=== PATIENT | female | born 1985 | race American Indian/Alaskan Native ===

== ENCOUNTER 2018-09-22 06:40 | Emergency (ER) | payer BC ==
[2018-09-22 07:21] LABS: Alanine Aminotransferase 9 units/L (7-56); Albumin 4.7 g/dL (3.9-5); BUN/Creatinine Ratio 19; Blood Urea Nitrogen 13 mg/dL (7-17); Calcium 10.3 mg/dL (8.4-10.2); Hemolysis Index 2
[2018-09-22 07:22] LABS: Basophils # (Auto) 0.1 K/mm3 (0.0-0.1); Basophils % (Auto) 0.7 % (0.0-1.8); Eosinophils % (Auto) 0.1 % (0.0-4.3); Hematocrit 37.1 % (30.3-42.9); Hemoglobin 12.1 gm/dl (10.1-14.3); Lymphocytes # (Auto) 2.7 K/mm3 (1.2-5.4); Lymphocytes % (Auto) 21.4 % (13.4-35.0); Mean Corpuscular HGB Conc 33 % (30-34); Mean Corpuscular Volume 76 fl (79-97); Monocytes # (Auto) 0.8 K/mm3 (0.0-0.8); Monocytes % (Auto) 6.1 % (0.0-7.3); Platelet Count 619 K/mm3 (140-440); Red Blood Count 4.85 M/mm3 (3.65-5.03); Red Cell Distribution Width 16.9 % (13.2-15.2)
[2018-09-22] MEDS ORDERED: ZOFRAN IV ONE (08:07)
[2018-09-22] MEDS ORDERED: NACL 0.9% 1000 ML 1,000 ML IV ONE ×2 (08:07→08:09)
[2018-09-22] MEDS ORDERED: MORPHINE IV ONE (08:14)
--- NOTE | 2018-09-22 08:20 | Emergency Department Report ---
ED Abdominal Pain HPI - General Chief Complaint: Abdominal Pain Stated Complaint: VOMITING OUT OF MEDICATION Time Seen by Provider: 09/22/18 07:55 Source: patient Mode of arrival: Ambulatory Limitations: No Limitations - History of Present Illness Initial Comments: Ms. Archuleta is a 33-year-old female with type 2 diabetes presents with vomiting and nausea for the past several days. She also has been without long-acting insulin of which she takes 10-15 units each night. She also has not taken metformin for the past week. She stated that the metformin has caused upset stomach and nausea. Diagnosed with type 2 diabetes for 5 years ago. According to electronic medical record, hemoglobin A1c is 14. She is followed by a physician side medical clinic. Currently she has diffuse moderately severe abdominal cramping. She has nausea. She just doesn't feel well. She is an employee here at [employer]. MD Complaint: abdominal pain -: Gradual, days(s) (several) Location: diffuse Severity: moderate Severity scale (0 -10): 7 Quality: cramping Consistency: constant Improves With: nothing Worsens With: nothing - Related Data Previous Rx's Medication Instructions Recorded Last Taken Type Blood-Glucose Meter [Blood Glucose 1 each QACHS #1 kit 04/24/18 07/14/18 Rx Monitoring] Aspirin EC [Aspirin Enteric Coated 81 mg PO QDAY #30 tablet 07/18/18 Unknown Rx TAB] AtorvaSTATin [Lipitor] 40 mg PO QHS #30 tablet 07/18/18 Unknown Rx Blood Sugar Diagnostic [Blood 1 each QACHS #120 strip 07/18/18 Unknown Rx Glucose Test Strip] Dicyclomine [Bentyl] 20 mg PO QID PRN #20 capsule 07/18/18 Unknown Rx Insulin Glargine [Lantus VIAL] 10 units SUB-Q QHS #1 vial 07/18/18 Unknown Rx Lancets 1 each QACHS #100 each 07/18/18 Unknown Rx Lisinopril 20 mg PO DAILY 30 Days #30 tablet 07/18/18 Unknown Rx Metoclopramide [Reglan TAB] 10 mg PO QID PRN #20 tab 07/18/18 Unknown Rx Syringe and Needle,Insulin,1Ml 1 each QHS #100 disp.syrin 07/18/18 Unknown Rx [Advocate Syringes] amLODIPine [Norvasc] 10 mg PO QDAY #30 tablet 07/18/18 Unknown Rx metFORMIN [Glucophage] 1,000 mg PO BID #120 tablet 07/18/18 Unknown Rx Insulin Glargine [Lantus VIAL] 10 unit SUB-Q QHS #1 vial 09/22/18 Unknown Rx Metoclopramide [Reglan] 10 mg PO QID PRN #20 tab 09/22/18 Unknown Rx Allergies Allergy/AdvReac Type Severity Reaction Status Date / Time Penicillins Allergy Rash Verified 07/16/18 14:47 shellfish derived Allergy Rash Verified 07/16/18 14:47 ED Review of Systems ROS: Stated complaint: VOMITING OUT OF MEDICATION Other details as noted in HPI Comment: All other systems reviewed and negative Constitutional: malaise. denies: fever Gastrointestinal: abdominal pain, nausea, vomiting. denies: diarrhea ED Past Medical Hx - Past Medical History Previous Medical History?: Yes Hx Hypertension: Yes Hx Congestive Heart Failure: No Hx Diabetes: Yes Hx Asthma: No Hx COPD: No Hx HIV: No - Surgical History Past Surgical History?: No - Social History Smoking Status: Never Smoker - Medications Home Medications: Home Medications Medication Instructions Recorded Confirmed Last Taken Type Blood-Glucose Meter [Blood Glucose 1 each QACHS #1 kit 04/24/18 07/15/18 07/14/18 Rx Monitoring] Aspirin EC [Aspirin Enteric Coated 81 mg PO QDAY #30 tablet 07/18/18 Unknown Rx TAB] AtorvaSTATin [Lipitor] 40 mg PO QHS #30 tablet 07/18/18 Unknown Rx Blood Sugar Diagnostic [Blood 1 each QACHS #120 strip 07/18/18 Unknown Rx Glucose Test Strip] Dicyclomine [Bentyl] 20 mg PO QID PRN #20 capsule 07/18/18 Unknown Rx Insulin Glargine [Lantus VIAL] 10 units SUB-Q QHS #1 vial 07/18/18 Unknown Rx Lancets 1 each QACHS #100 each 07/18/18 Unknown Rx Lisinopril 20 mg PO DAILY 30 Days #30 tablet 07/18/18 Unknown Rx Metoclopramide [Reglan TAB] 10 mg PO QID PRN #20 tab 07/18/18 Unknown Rx Syringe and Needle,Insulin,1Ml 1 each QHS #100 disp.syrin 07/18/18 Unknown Rx [Advocate Syringes] amLODIPine [Norvasc] 10 mg PO QDAY #30 tablet 07/18/18 Unknown Rx metFORMIN [Glucophage] 1,000 mg PO BID #120 tablet 07/18/18 Unknown Rx Insulin Glargine [Lantus VIAL] 10 unit SUB-Q QHS #1 vial 09/22/18 Unknown Rx Metoclopramide [Reglan] 10 mg PO QID PRN #20 tab 09/22/18 Unknown Rx ED Physical Exam - General Limitations: No Limitations General appearance: alert, in no apparent distress - Head Head exam: Present: atraumatic, normocephalic - Eye Eye exam: Present: normal appearance - ENT ENT exam: Present: mucous membranes dry - Neck Neck exam: Present: normal inspection, full ROM. Absent: tenderness, meningismus - Respiratory Respiratory exam: Present: normal lung sounds bilaterally. Absent: respiratory distress, wheezes, rales, rhonchi - Cardiovascular Cardiovascular Exam: Present: normal rhythm, tachycardia, normal heart sounds. Absent: systolic murmur, diastolic murmur, rubs, gallop - GI/Abdominal GI/Abdominal exam: Present: soft, normal bowel sounds. Absent: distended, tenderness, guarding, rebound - Extremities Exam Extremities exam: Present: normal inspection - Back Exam Back exam: Present: normal inspection - Neurological Exam Neurological exam: Present: alert, oriented X3 - Psychiatric Psychiatric exam: Present: normal affect, normal mood - Skin Skin exam: Present: warm, dry, intact, normal color. Absent: rash ED Course Vital Signs 09/22/18 09/22/18 06:46 07:20 Temperature 98.4 F Pulse Rate 134 H Respiratory 22 16 Rate Blood Pressure 119/88 O2 Sat by Pulse 99 99 Oximetry ED Medical Decision Making - Lab Data Result diagrams: 09/22/18 06:55 09/22/18 06:55 Laboratory Results - last 24 hr 09/22/18 09/22/18 09/22/18 06:52 06:55 06:55 WBC 12.4 H RBC 4.85 Hgb 12.1 Hct 37.1 MCV 76 L MCH 25 L MCHC 33 RDW 16.9 H Plt Count 619 H Lymph % (Auto) 21.4 [place] % (Auto) 6.1 Eos % (Auto) 0.1 Baso % (Auto) 0.7 Lymph # 2.7 [place] # 0.8 Eos # 0.0 Baso # 0.1 Seg Neutrophils % 71.7 H Seg Neutrophils # 8.9 H VBG pH Sodium 133 L Potassium 4.5 Chloride 94.4 L Carbon Dioxide 18 L Anion Gap 25 BUN 13 Creatinine 0.7 Estimated GFR > 60 BUN/Creatinine Ratio 19 Glucose 203 H POC Glucose 156 H Calcium 10.3 H Total Bilirubin 0.80 AST 15 ALT 9 Alkaline Phosphatase 70 Total Protein 8.9 H Albumin 4.7 Albumin/Globulin Ratio 1.1 HCG, Qual Urine Color Urine Turbidity Urine pH Ur Specific [place] Urine Protein Urine Glucose (UA) Urine Ketones Urine Blood Urine Nitrite Ur Reducing Substances Urine Bilirubin Urine Ictotest Urine Urobilinogen Ur Leukocyte Esterase Urine WBC (Auto) Urine RBC (Auto) U Epithel Cells (Auto) Urine Bacteria (Auto) Hyaline Casts Urine Mucus Urine HCG, Qual 09/22/18 09/22/18 09/22/18 06:55 08:14 08:14 WBC RBC Hgb Hct MCV MCH MCHC RDW Plt Count Lymph % (Auto) [place] % (Auto) Eos % (Auto) Baso % (Auto) Lymph # [place] # Eos # Baso # Seg Neutrophils % Seg Neutrophils # VBG pH 7.317 L Sodium Potassium Chloride Carbon Dioxide Anion Gap BUN Creatinine Estimated GFR BUN/Creatinine Ratio Glucose POC Glucose Calcium Total Bilirubin AST ALT Alkaline Phosphatase Total Protein Albumin Albumin/Globulin Ratio HCG, Qual Negative Urine Color [place] Urine Turbidity Cloudy Urine pH 5.0 Ur Specific [place] 1.024 Urine Protein 100 mg/dl Urine Glucose (UA) Neg Urine Ketones 80 Urine Blood Neg Urine Nitrite Neg Ur Reducing Substances Not Reportable Urine Bilirubin Neg Urine Ictotest Not Reportable Urine Urobilinogen 2.0 Ur Leukocyte Esterase Mod Urine WBC (Auto) 13.0 H Urine RBC (Auto) 19.0 U Epithel Cells (Auto) 92.0 H Urine Bacteria (Auto) 1+ Hyaline Casts 14 Urine Mucus 2+ Urine HCG, Qual Negative - Medical Decision Making Ms. Archuleta presents with recurrent abdominal pain, nausea vomiting for several days. Initially attributed symptoms to Metformin. Stopped metformin. Has not had insulin in one week. Mild ketosis withoout significant acidosis or hyperglycemia. Given IVF, pain control and antiemetic in ED. Ms. Archuleta felt better, desired to be discharged home. Requested pain medication for recurrent abdominal pain. Prescribed reglan. I reviewed GI consultation from previous admission. EGD revealed nonobstructive Schatzki's ring without abnormality otherwise. No indication of peritonitis. Contaminated urine seen. Without localized pain, 12K WBC elevation does not correspond to acute intra-abdominal inflammatory process. After treatment in the ED BP heart rate 72 bpm Critical care attestation.: If time is entered above; I have spent that time in minutes in the direct care of this critically ill patient, excluding procedure time. ED Disposition Clinical Impression: Acute generalized abdominal pain, Dehydration, Type 1 diabetes Disposition: DC- TO HOME OR SELFCARE Is pt being admited?: No Does the pt Need Aspirin: No Condition: Stable Instructions: Abdominal Pain (ED) Prescriptions: Insulin Glargine [Lantus VIAL] 10 unit SUB-Q QHS #1 vial Metoclopramide [Reglan] 10 mg PO QID PRN #20 tab PRN Reason: nausea/vomiting/abdominal pain Referrals: [facility] [Outside] - [place] Forms: Work/School Release Form(ED)
[2018-09-22 08:21] LABS: HCG Qualitative,Urine Negative (Negative)
[2018-09-22 08:31] LABS: Bacteria,Urine 1+ /HPF (Negative); Hyaline Casts,Urine 14 /LPF; Mucus,Urine 2+ /HPF
[2018-09-22 08:43] LABS: Bilirubin,Urine NEG (Negative); Blood,Urine NEG (Negative); Color,Urine Amber (Yellow)
[2018-09-22 11:03] VITALS: BP 127/87
== END 2018-09-22 11:04 | disposition home or self-care (01) ==
LOC: ED 06:40
DX: R10.84 Generalized abdominal pain (principal); E86.0 Dehydration; E10.9 Type 1 diabetes mellitus without complications; I10 Essential (primary) hypertension; Z88.0 Allergy status to penicillin; Z91.013 Allergy to seafood
CPT/HCPCS: 36415; 80053; 81001; 81025; 82805; 82962; 84703; 85025; 96361; 96374; 96375; 99283; J2270; J2405; J7030

== ENCOUNTER 2018-09-28 06:37 | Emergency (ER) | payer BC ==
[2018-09-28 07:42] LABS: Basophils # (Auto) 0.1 K/mm3 (0.0-0.1); Basophils % (Auto) 1.1 % (0.0-1.8); Eosinophils % (Auto) 0.3 % (0.0-4.3); Hematocrit 35.6 % (30.3-42.9); Hemoglobin 11.9 gm/dl (10.1-14.3); Lymphocytes # (Auto) 2.4 K/mm3 (1.2-5.4); Lymphocytes % (Auto) 27.2 % (13.4-35.0); Mean Corpuscular HGB Conc 33 % (30-34); Mean Corpuscular Volume 77 fl (79-97); Monocytes # (Auto) 0.5 K/mm3 (0.0-0.8); Monocytes % (Auto) 5.2 % (0.0-7.3); Platelet Count 534 K/mm3 (140-440); Red Blood Count 4.62 M/mm3 (3.65-5.03); Red Cell Distribution Width 16.7 % (13.2-15.2)
[2018-09-28] MEDS ORDERED: NACL 0.9% 1000 ML 1,000 ML IV ONE ×2 (07:51→08:19)
[2018-09-28] MEDS ORDERED: MORPHINE IV ONE (07:51)
[2018-09-28] MEDS ORDERED: ZOFRAN IV ONE (07:51)
[2018-09-28 08:04] LABS: Alanine Aminotransferase 8 units/L (7-56); Albumin 4.4 g/dL (3.9-5); BUN/Creatinine Ratio 20; Blood Urea Nitrogen 16 mg/dL (7-17); Calcium 9.9 mg/dL (8.4-10.2); Hemolysis Index 12
[2018-09-28] MEDS ORDERED: REGLAN IV ONE (08:19)
--- NOTE | 2018-09-28 08:19 | Emergency Department Report ---
ED Abdominal Pain HPI - General Chief Complaint: Nausea/Vomiting/Diarrhea Stated Complaint: EMESIS Time Seen by Provider: 09/28/18 07:46 Source: patient Mode of arrival: Ambulatory Limitations: No Limitations - History of Present Illness Initial Comments: 33-year-old female with her second visit for diabetic gastroparesis symptoms in the last 7 days. She states that she has a follow-up appointment with her primary care doctor next week but did not attempt to see him earlier. He states that she has not been able to eat lately. She does not report fever or chills. She complains of epigastric discomfort which is nonmigratory and nonpleuritic/nonradiating. Complaints of nausea and vomiting but no signs of any GI bleeding. She's not had any significant diarrhea. She has taken Zofran at home but not Reglan. She denies any previous abdominal surgery. Review of her prior record on indicated that the patient did have similar symptoms, an anion gap of 25 and glucose and 200s. Her urine had a lot of sediment. It was leukocyte esterase positive. She is currently taking an antibiotic. MD Complaint: abdominal pain -: Gradual, days(s) Location: epigastric Radiation: none Migration to: no migration Severity: moderate Quality: aching Consistency: intermittent Worsens With: nothing Context: other (diabetic gastroparesis) - Related Data Previous Rx's Medication Instructions Recorded Last Taken Type Blood-Glucose Meter [Blood Glucose 1 each QACHS #1 kit 04/24/18 07/14/18 Rx Monitoring] Aspirin EC [Aspirin Enteric Coated 81 mg PO QDAY #30 tablet 07/18/18 Unknown Rx TAB] AtorvaSTATin [Lipitor] 40 mg PO QHS #30 tablet 07/18/18 Unknown Rx Blood Sugar Diagnostic [Blood 1 each QACHS #120 strip 07/18/18 Unknown Rx Glucose Test Strip] Dicyclomine [Bentyl] 20 mg PO QID PRN #20 capsule 07/18/18 Unknown Rx Insulin Glargine [Lantus VIAL] 10 units SUB-Q QHS #1 vial 07/18/18 Unknown Rx Lancets 1 each QACHS #100 each 07/18/18 Unknown Rx Lisinopril 20 mg PO DAILY 30 Days #30 tablet 07/18/18 Unknown Rx Metoclopramide [Reglan TAB] 10 mg PO QID PRN #20 tab 07/18/18 Unknown Rx Syringe and Needle,Insulin,1Ml 1 each QHS #100 disp.syrin 07/18/18 Unknown Rx [Advocate Syringes] amLODIPine [Norvasc] 10 mg PO QDAY #30 tablet 07/18/18 Unknown Rx metFORMIN [Glucophage] 1,000 mg PO BID #120 tablet 07/18/18 Unknown Rx Insulin Glargine [Lantus VIAL] 10 unit SUB-Q QHS #1 vial 09/22/18 Unknown Rx Metoclopramide [Reglan] 10 mg PO QID PRN #20 tab 09/22/18 Unknown Rx Lansoprazole [Prevacid] 15 mg PO BID #30 cap 09/28/18 Unknown Rx Ondansetron [Zofran Odt] 4 mg PO Q8HR #14 tab.rapdis 09/28/18 Unknown Rx Tramadol HCl [Ultram] 50 mg PO Q6HR PRN #14 tablet 09/28/18 Unknown Rx Allergies Allergy/AdvReac Type Severity Reaction Status Date / Time Penicillins Allergy Rash Verified 07/16/18 14:47 shellfish derived Allergy Rash Verified 07/16/18 14:47 ED Review of Systems ROS: Stated complaint: EMESIS Other details as noted in HPI Constitutional: denies: chills, fever Eyes: denies: eye pain, eye discharge, vision change ENT: denies: ear pain, throat pain Respiratory: denies: cough, shortness of breath, wheezing Cardiovascular: denies: chest pain, palpitations Endocrine: no symptoms reported Gastrointestinal: abdominal pain, nausea, vomiting. denies: diarrhea Genitourinary: denies: urgency, dysuria, discharge Musculoskeletal: denies: back pain, joint swelling, arthralgia Skin: denies: rash, lesions Neurological: denies: headache, weakness, paresthesias Psychiatric: denies: anxiety, depression Hematological/Lymphatic: denies: easy bleeding, easy bruising ED Past Medical Hx - Past Medical History Hx Hypertension: Yes Hx Congestive Heart Failure: No Hx Diabetes: Yes Hx Asthma: No Hx COPD: No Hx HIV: No - Surgical History Past Surgical History?: No - Social History Smoking Status: Never Smoker - Medications Home Medications: Home Medications Medication Instructions Recorded Confirmed Last Taken Type Blood-Glucose Meter [Blood Glucose 1 each QACHS #1 kit 04/24/18 07/15/1807/14/18 Rx Monitoring] Aspirin EC [Aspirin Enteric Coated 81 mg PO QDAY #30 tablet 07/18/18 Unknown Rx TAB] AtorvaSTATin [Lipitor] 40 mg PO QHS #30 tablet 07/18/18 Unknown Rx Blood Sugar Diagnostic [Blood 1 each QACHS #120 strip 07/18/18 Unknown Rx Glucose Test Strip] Dicyclomine [Bentyl] 20 mg PO QID PRN #20 capsule 07/18/18 Unknown Rx Insulin Glargine [Lantus VIAL] 10 units SUB-Q QHS #1 vial 07/18/18 Unknown Rx Lancets 1 each QACHS #100 each 07/18/18 Unknown Rx Lisinopril 20 mg PO DAILY 30 Days #30 tablet 07/18/18 Unknown Rx Metoclopramide [Reglan TAB] 10 mg PO QID PRN #20 tab 07/18/18 Unknown Rx Syringe and Needle,Insulin,1Ml 1 each QHS #100 disp.syrin 07/18/18 Unknown Rx [Advocate Syringes] amLODIPine [Norvasc] 10 mg PO QDAY #30 tablet 07/18/18 Unknown Rx metFORMIN [Glucophage] 1,000 mg PO BID #120 tablet 07/18/18 Unknown Rx Insulin Glargine [Lantus VIAL] 10 unit SUB-Q QHS #1 vial 09/22/18 Unknown Rx Metoclopramide [Reglan] 10 mg PO QID PRN #20 tab 09/22/18 Unknown Rx Lansoprazole [Prevacid] 15 mg PO BID #30 cap 09/28/18 Unknown Rx Ondansetron [Zofran Odt] 4 mg PO Q8HR #14 tab.rapdis 09/28/18 Unknown Rx Tramadol HCl [Ultram] 50 mg PO Q6HR PRN #14 tablet 09/28/18 Unknown Rx ED Physical Exam - General Limitations: No Limitations General appearance: alert, in no apparent distress - Head Head exam: Present: atraumatic, normocephalic - Eye Eye exam: Present: normal appearance. Absent: scleral icterus - ENT ENT exam: Present: mucous membranes moist - Neck Neck exam: Present: normal inspection - Respiratory Respiratory exam: Present: normal lung sounds bilaterally. Absent: respiratory distress - Cardiovascular Cardiovascular Exam: Present: regular rate, normal rhythm. Absent: systolic murmur, diastolic murmur, rubs, gallop - GI/Abdominal GI/Abdominal exam: Present: soft, normal bowel sounds. Absent: distended, tenderness, guarding, rebound, rigid - Extremities Exam Extremities exam: Present: normal inspection - Back Exam Back exam: Present: normal inspection - Neurological Exam Neurological exam: Present: alert, oriented X3, CN II-XII intact. Absent: motor sensory deficit - Psychiatric Psychiatric exam: Present: normal affect, normal mood - Skin Skin exam: Present: warm, dry, intact, normal color. Absent: rash ED Course Vital Signs 09/28/18 09/28/18 06:43 08:28 Temperature 97.7 F Pulse Rate 133 H Respiratory 16 14 Rate Blood Pressure 104/83 O2 Sat by Pulse 98 99 Oximetry - Reevaluation(s) Reevaluation #1: No vomiting in the emergency department. The patient is entirely comfortable and appropriate for outpatient disposition. 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 09/28/18 11:08 ED Medical Decision Making - Lab Data Result diagrams: 09/28/18 07:10 09/28/18 07:10 Laboratory Results - last 24 hr 09/28/18 09/28/18 09/28/18 06:52 07:10 07:10 WBC 8.9 RBC 4.62 Hgb 11.9 Hct 35.6 MCV 77 L MCH 26 L MCHC 33 RDW 16.7 H Plt Count 534 H Lymph % (Auto) 27.2 [place] % (Auto) 5.2 Eos % (Auto) 0.3 Baso % (Auto) 1.1 Lymph # 2.4 [place] # 0.5 Eos # 0.0 Baso # 0.1 Seg Neutrophils % 66.2 Seg Neutrophils # 5.9 Sodium 130 L Potassium 3.9 Chloride 91.9 L Carbon Dioxide 18 L Anion Gap 24 BUN 16 Creatinine 0.8 Estimated GFR > 60 BUN/Creatinine Ratio 20 Glucose 120 H POC Glucose 116 H Calcium 9.9 Total Bilirubin 0.60 AST 14 ALT 8 Alkaline Phosphatase 61 Total Protein 8.5 H Albumin 4.4 Albumin/Globulin Ratio 1.1 HCG, Qual 09/28/18 07:10 WBC RBC Hgb Hct MCV MCH MCHC RDW Plt Count Lymph % (Auto) [place] % (Auto) Eos % (Auto) Baso % (Auto) Lymph # [place] # Eos # Baso # Seg Neutrophils % Seg Neutrophils # Sodium Potassium Chloride Carbon Dioxide Anion Gap BUN Creatinine Estimated GFR BUN/Creatinine Ratio Glucose POC Glucose Calcium Total Bilirubin AST ALT Alkaline Phosphatase Total Protein Albumin Albumin/Globulin Ratio HCG, Qual Negative Critical care attestation.: If time is entered above; I have spent that time in minutes in the direct care of this critically ill patient, excluding procedure time. ED Disposition Clinical Impression: Diabetic gastroparesis, Hyponatremia, Volume depletion, Ketosis Disposition: TO HOME OR SELFCARE Is pt being admited?: No Does the pt Need Aspirin: No Condition: Stable Instructions: Diabetes Mellitus Type 2 in Adults (ED) Additional Instructions: Watch your sugar carefully. Return to the emergency department any acute change or worsening symptoms. Returned here unable to tolerate oral feeding. Close follow-up with your primary care doctor is warranted. Prescriptions: Lansoprazole [Prevacid] 15 mg PO BID #30 cap Ondansetron [Zofran Odt] 4 mg PO Q8HR #14 tab.rapdis Tramadol HCl [Ultram] 50 mg PO Q6HR PRN #14 tablet PRN Reason: Pain, Moderate (4-6) Referrals: PRIMARY CARE, [Primary Care Provider] - 24 Hours Time of Disposition: 11:09
[2018-09-28 08:32] LABS: INR 0.95 (0.87-1.13)
[2018-09-28 08:33] LABS: Partial Thromboplastin Time 26.9 Sec. (24.2-36.6)
[2018-09-28 10:32] LABS: Bilirubin,Urine NEG (Negative); Blood,Urine NEG (Negative); Color,Urine Yellow (Yellow); Mucus,Urine 1+ /HPF
[2018-09-28 10:34] LABS: HCG Qualitative,Urine Negative (Negative)
[2018-09-28 11:29] LABS: Amphetamine Screen,Urine PRESUMPTIVE NEGATIVE; Benzodiazepines Screen,Urine PRESUMPTIVE NEGATIVE; Cannabinoid Screen,Urine PRESUMPTIVE NEGATIVE; Cocaine Screen,Urine PRESUMPTIVE NEGATIVE; Methadone Screen,Urine PRESUMPTIVE NEGATIVE
[2018-09-28] MEDS ORDERED: NORCO 5/325 PO ONE (11:35)
[2018-09-28 11:42] LABS: Opiate Screen,Urine PRESUMPTIVE POSITIVE
[2018-09-28 12:52] VITALS: BP 131/85
== END 2018-09-28 12:06 | disposition home or self-care (01) ==
LOC: ED 06:37
DX: E11.43 Type 2 diabetes mellitus with diabetic autonomic (poly)neuropathy (principal); K31.84 Gastroparesis; Z79.4 Long term (current) use of insulin; E87.1 Hypo-osmolality and hyponatremia; E11.10 Type 2 diabetes mellitus with ketoacidosis without coma; E86.9 Volume depletion, unspecified; I10 Essential (primary) hypertension; Z91.013 Allergy to seafood; Z88.0 Allergy status to penicillin
CPT/HCPCS: 36415; 80053; 80307; 81001; 81025; 82140; 82550; 82553; 82805; 82962; 83690; 83735; 84484; 84703; 85025; 85610; 85730; 96361; 96374; 96375; 99284; J2270; J2405; J2765; J7030

== ENCOUNTER 2020-05-01 14:47 | Emergency (ER) | payer SELFPAY ==
[2020-05-01 16:06] VITALS: BP 139/89
[2020-05-01] MEDS ORDERED: ONDANSETRON 4 MG/2 ML INJ IM ONE (16:54)
[2020-05-01] MEDS ORDERED: SODIUM CHLORIDE 0.9% 1000 ML 1,000 ML IV ONE (16:54)
[2020-05-01] MEDS ORDERED: MORPHINE 4 MG/1 ML INJ IV ONE (16:54)
--- NOTE | 2020-05-01 17:02 | Emergency Department Report ---
ED General Adult HPI - General Chief complaint: Hyperglycemia Stated complaint: HIGH BLOOD SUGAR Time Seen by Provider: 05/01/20 16:30 Source: patient Mode of arrival: Ambulatory Limitations: No Limitations - History of Present Illness Initial comments: Patient presents to the emergency department the chief complaint of elevated glucose levels for the last 4 to 5 days. Patient states she has had increased thirst and urination during that timeframe as well. Patient states she ran out of the insulin a couple of days ago but has been taking it the last 3 days. Patient does endorse being positive for coronavirus in March of this year. Patient denies chest pain, shortness breath, abdominal pain. Patient does complain of body aches but denies fever. -: Gradual Severity scale (0 -10): 2 Quality: aching Consistency: constant Improves with: none Worsens with: none Associated Symptoms: denies other symptoms Treatments Prior to Arrival: none - Related Data Previous Rx's Medication Instructions Recorded Last Taken Type Blood-Glucose Meter [Blood Glucose 1 each QACHS #1 kit 04/24/18 07/14/18 Rx Monitoring] Aspirin EC [Halfprin EC] 81 mg PO QDAY #30 tablet 07/18/18 Unknown Rx AtorvaSTATin [Lipitor] 40 mg PO QHS #30 tablet 07/18/18 Unknown Rx Blood Sugar Diagnostic [Blood 1 each QACHS #120 strip 07/18/18 Unknown Rx Glucose Test Strip] Dicyclomine [Bentyl] 20 mg PO QID PRN #20 capsule 07/18/18 Unknown Rx Insulin Glargine [Lantus VIAL] 10 units SUB-Q QHS #1 vial 07/18/18 Unknown Rx Lancets 1 each QACHS #100 each 07/18/18 Unknown Rx Metoclopramide [Reglan TAB] 10 mg PO QID PRN #20 tab 07/18/18 Unknown Rx Syringe and Needle,Insulin,1Ml 1 each QHS #100 disp.syrin 07/18/18 Unknown Rx [Advocate Syringes] amLODIPine 10 mg PO QDAY #30 tablet 07/18/18 Unknown Rx lisinopriL [Lisinopril] 20 mg PO DAILY 30 Days #30 tablet 07/18/18 Unknown Rx metFORMIN [Glucophage] 1,000 mg PO BID #120 tablet 07/18/18 Unknown Rx Insulin Glargine [Lantus VIAL] 10 unit SUB-Q QHS #1 vial 09/22/18 Unknown Rx Metoclopramide [Reglan] 10 mg PO QID PRN #20 tab 09/22/18 Unknown Rx Lansoprazole [Prevacid] 15 mg PO BID #30 cap 09/28/18 Unknown Rx Ondansetron [Zofran Odt] 4 mg PO Q8HR #14 tab.rapdis 09/28/18 Unknown Rx Tramadol HCl [Ultram] 50 mg PO Q6HR PRN #14 tablet 09/28/18 Unknown Rx traMADoL [Ultram] 50 mg PO Q6HR PRN #24 tablet 05/01/20 Unknown Rx Allergies Allergy/AdvReac Type Severity Reaction Status Date / Time Penicillins Allergy Rash Verified 07/16/18 14:47 shellfish derived Allergy Rash Verified 07/16/18 14:47 ED Review of Systems ROS: Stated complaint: HIGH BLOOD SUGAR Other details as noted in HPI Comment: All other systems reviewed and negative Constitutional: other (Body aches). denies: chills, fever Eyes: denies: eye pain, eye discharge, vision change ENT: denies: ear pain, throat pain Respiratory: denies: cough, shortness of breath, wheezing Cardiovascular: denies: chest pain, palpitations Endocrine: no symptoms reported Gastrointestinal: denies: abdominal pain, nausea, diarrhea Genitourinary: denies: urgency, dysuria, discharge Musculoskeletal: denies: back pain, joint swelling, arthralgia Skin: denies: rash, lesions Neurological: denies: headache, weakness, paresthesias Psychiatric: denies: anxiety, depression Hematological/Lymphatic: denies: easy bleeding, easy bruising ED Past Medical Hx - Past Medical History Previous Medical History?: Yes Hx Hypertension: Yes Hx Congestive Heart Failure: No Hx Diabetes: Yes Hx Asthma: No Hx COPD: No Hx HIV: No - Surgical History Past Surgical History?: No - Social History Smoking Status: Never Smoker Substance Use Type: None - Medications Home Medications: Home Medications Medication Instructions Recorded Confirmed Last Taken Type Blood-Glucose Meter [Blood Glucose 1 each QACHS #1 kit 04/24/18 07/15/18 07/14/18 Rx Monitoring] Aspirin EC [Halfprin EC] 81 mg PO QDAY #30 tablet 07/18/18 Unknown Rx AtorvaSTATin [Lipitor] 40 mg PO QHS #30 tablet 07/18/18 Unknown Rx Blood Sugar Diagnostic [Blood 1 each QACHS #120 strip 07/18/18 Unknown Rx Glucose Test Strip] Dicyclomine [Bentyl] 20 mg PO QID PRN #20 capsule 07/18/18 Unknown Rx Insulin Glargine [Lantus VIAL] 10 units SUB-Q QHS #1 vial 07/18/18 Unknown Rx Lancets 1 each QACHS #100 each 07/18/18 Unknown Rx Metoclopramide [Reglan TAB] 10 mg PO QID PRN #20 tab 07/18/18 Unknown Rx Syringe and Needle,Insulin,1Ml 1 each QHS #100 disp.syrin 07/18/18 Unknown Rx [Advocate Syringes] amLODIPine 10 mg PO QDAY #30 tablet 07/18/18 Unknown Rx lisinopriL [Lisinopril] 20 mg PO DAILY 30 Days #30 tablet 07/18/18 Unknown Rx metFORMIN [Glucophage] 1,000 mg PO BID #120 tablet 07/18/18 Unknown Rx Insulin Glargine [Lantus VIAL] 10 unit SUB-Q QHS #1 vial 09/22/18 Unknown Rx Metoclopramide [Reglan] 10 mg PO QID PRN #20 tab 09/22/18 Unknown Rx Lansoprazole [Prevacid] 15 mg PO BID #30 cap 09/28/18 Unknown Rx Ondansetron [Zofran Odt] 4 mg PO Q8HR #14 tab.rapdis 09/28/18 Unknown Rx Tramadol HCl [Ultram] 50 mg PO Q6HR PRN #14 tablet 09/28/18 Unknown Rx traMADoL [Ultram] 50 mg PO Q6HR PRN #24 tablet 05/01/20 Unknown Rx ED Physical Exam - General Limitations: No Limitations General appearance: alert, in no apparent distress - Head Head exam: Present: atraumatic, normocephalic - Eye Eye exam: Present: normal appearance - ENT ENT exam: Present: mucous membranes dry - Neck Neck exam: Present: normal inspection - Respiratory Respiratory exam: Present: normal lung sounds bilaterally. Absent: respiratory distress - Cardiovascular Cardiovascular Exam: Present: normal rhythm, tachycardia. Absent: systolic murmur, diastolic murmur, rubs, gallop - GI/Abdominal GI/Abdominal exam: Present: soft, normal bowel sounds - Extremities Exam Extremities exam: Present: normal inspection - Back Exam Back exam: Present: normal inspection - Neurological Exam Neurological exam: Present: alert, oriented X3, CN II-XII intact. Absent: motor sensory deficit - Psychiatric Psychiatric exam: Present: normal affect, normal mood - Skin Skin exam: Present: warm, dry, intact, normal color. Absent: rash ED Course Vital Signs 05/01/20 05/01/20 05/01/20 15:02 16:04 17:17 Temperature 98.7 F 98.9 F Pulse Rate 116 H 92 H Respiratory 16 14 18 Rate Blood Pressure 130/89 Blood Pressure 139/89 [Right] O2 Sat by Pulse 98 98 Oximetry 05/01/20 17:47 Temperature Pulse Rate Respiratory 18 Rate Blood Pressure Blood Pressure [Right] O2 Sat by Pulse Oximetry ED Medical Decision Making - Lab Data Result diagrams: 05/01/20 17:25 05/01/20 17:25 Lab Results 05/01/20 05/01/20 05/01/20 Range/Units 15:27 17:25 17:25 WBC 14.2 H (4.5-11.0) K/mm3 RBC 4.84 (3.65-5.03) M/mm3 Hgb 12.0 (10.1-14.3) gm/dl Hct 37.2 (30.3-42.9) % MCV 77 L (79-97) fl MCH 25 L (28-32) pg MCHC 32 (30-34) % RDW 18.0 H (13.2-15.2) % Plt Count 455 H (140-440) K/mm3 Lymph % (Auto) 22.6 (13.4-35.0) % Trigg % (Auto) 6.9 (0.0-7.3) % Eos % (Auto) 0.2 (0.0-4.3) % Baso % (Auto) 0.7 (0.0-1.8) % Lymph # (Auto) 3.2 (1.2-5.4) K/mm3 Trigg # (Auto) 1.0 H (0.0-0.8) K/mm3 Eos # (Auto) 0.0 (0.0-0.4) K/mm3 Baso # (Auto) 0.1 (0.0-0.1) K/mm3 Seg Neutrophils % 69.6 (40.0-70.0) % Seg Neutrophils # 9.9 H (1.8-7.7) K/mm3 Sodium 127 L (137-145) mmol/L Potassium 4.0 (3.6-5.0) mmol/L Chloride 88.5 L (98-107) mmol/L Carbon Dioxide 26 (22-30) mmol/L Anion Gap 17 mmol/L BUN 17 (7-17) mg/dL Creatinine 1.1 (0.6-1.2) mg/dL Estimated GFR > 60 ml/min BUN/Creatinine Ratio 15 % Glucose 354 H (65-100) mg/dL POC Glucose 416 H (70-105) Calcium 9.5 (8.4-10.2) mg/dL Total Bilirubin 0.40 (0.1-1.2) mg/dL AST 11 (5-40) units/L ALT 9 (7-56) units/L Alkaline Phosphatase 98 (35-129) units/L Total Protein 7.9 (6.3-8.2) g/dL Albumin 3.8 L (3.9-5) g/dL Albumin/Globulin Ratio 0.9 % Urine Color (Yellow) Urine Turbidity (Clear) Urine pH (5.0-7.0) Ur Specific Hunt (1.003-1.030) Urine Protein (Negative) mg/dL Urine Glucose (UA) (Negative) mg/dL Urine Ketones (Negative) mg/dL Urine Blood (Negative) Urine Nitrite (Negative) Urine Bilirubin (Negative) Urine Urobilinogen (<2.0) mg/dL Ur Leukocyte Esterase (Negative) Urine WBC (Auto) (0.0-6.0) /HPF Urine RBC (Auto) (0.0-6.0) /HPF U Epithel Cells (Auto) (0-13.0) /HPF Urine Mucus /HPF 05/01/20 05/01/20 Range/Units 19:36 Unknown WBC (4.5-11.0) K/mm3 RBC (3.65-5.03) M/mm3 Hgb (10.1-14.3) gm/dl Hct (30.3-42.9) % MCV (79-97) fl MCH (28-32) pg MCHC (30-34) % RDW (13.2-15.2) % Plt Count (140-440) K/mm3 Lymph % (Auto) (13.4-35.0) % Trigg % (Auto) (0.0-7.3) % Eos % (Auto) (0.0-4.3) % Baso % (Auto) (0.0-1.8) % Lymph # (Auto) (1.2-5.4) K/mm3 Trigg # (Auto) (0.0-0.8) K/mm3 Eos # (Auto) (0.0-0.4) K/mm3 Baso # (Auto) (0.0-0.1) K/mm3 Seg Neutrophils % (40.0-70.0) % Seg Neutrophils # (1.8-7.7) K/mm3 Sodium (137-145) mmol/L Potassium (3.6-5.0) mmol/L Chloride (98-107) mmol/L Carbon Dioxide (22-30) mmol/L Anion Gap mmol/L BUN (7-17) mg/dL Creatinine (0.6-1.2) mg/dL Estimated GFR ml/min BUN/Creatinine Ratio % Glucose (65-100) mg/dL POC Glucose 303 H (70-105) Calcium (8.4-10.2) mg/dL Total Bilirubin (0.1-1.2) mg/dL AST (5-40) units/L ALT (7-56) units/L Alkaline Phosphatase (35-129) units/L Total Protein (6.3-8.2) g/dL Albumin (3.9-5) g/dL Albumin/Globulin Ratio % Urine Color Yellow (Yellow) Urine Turbidity Slightly-cloudy (Clear) Urine pH 5.0 (5.0-7.0) Ur Specific Hunt 1.022 (1.003-1.030) Urine Protein <15 mg/dl (Negative) mg/dL Urine Glucose (UA) >=500 (Negative) mg/dL Urine Ketones 20 (Negative) mg/dL Urine Blood Neg (Negative) Urine Nitrite Neg (Negative) Urine Bilirubin Neg (Negative) Urine Urobilinogen < 2.0 (<2.0) mg/dL Ur Leukocyte Esterase Neg (Negative) Urine WBC (Auto) 3.0 (0.0-6.0) /HPF Urine RBC (Auto) 3.0 (0.0-6.0) /HPF U Epithel Cells (Auto) 14.0 H (0-13.0) /HPF Urine Mucus Few /HPF - Radiology Data Radiology results: report reviewed - Medical Decision Making Patient received 2 L of normal saline as well as 5 units of insulin via IV Discussed with patient that her body aches could be secondary to her recent diagnosis of coronavirus Patient denies history of seizures Critical Care Time: Yes Critical care time in (mins) excluding proc time.: 35 Critical care attestation.: If time is entered above; I have spent that time in minutes in the direct care of this critically ill patient, excluding procedure time. ED Disposition Clinical Impression: Hyperglycemia due to diabetes mellitus, Myalgia Disposition: TO HOME OR SELFCARE Is pt being admited?: No Does the pt Need Aspirin: No Condition: Stable Instructions: Diabetes Mellitus Type 2 in Adults (ED) Additional Instructions: return if worse Referrals: GILSON NAVARRO RN [Primary Care Provider] - 3-5 Days NATALIA ALVAREZ MD [Staff Physician] - 3-5 Days Time of Disposition: 20:31
--- NOTE | 2020-05-01 17:22 | XRay Report ---
XR chest 1V ap INDICATION / CLINICAL INFORMATION: Tachycardia COMPARISON: 04/22/2018 FINDINGS: SUPPORT DEVICES: None. HEART / MEDIASTINUM: No significant abnormality. LUNGS / PLEURA: Lungs are clear. Costophrenic sulci are sharp. No pneumothorax. ADDITIONAL FINDINGS: No significant additional findings. IMPRESSION: 1. No acute findings. Signer Name: Zan Montenegro MD Signed: 05/01/2020 5:18 PM Workstation Name: [id number]
[2020-05-01 17:47] LABS: Basophils # (Auto) 0.1 K/mm3 (0.0-0.1); Basophils % (Auto) 0.7 % (0.0-1.8); Eosinophils % (Auto) 0.2 % (0.0-4.3); Hematocrit 37.2 % (30.3-42.9); Lymphocytes # (Auto) 3.2 K/mm3 (1.2-5.4); Lymphocytes % (Auto) 22.6 % (13.4-35.0); Mean Corpuscular HGB Conc 32 % (30-34); Mean Corpuscular Volume 77 fl (79-97); Monocytes % (Auto) 6.9 % (0.0-7.3); Platelet Count 455 K/mm3 (140-440); Red Blood Count 4.84 M/mm3 (3.65-5.03)
[2020-05-01 18:07] LABS: Alanine Aminotransferase 9 units/L (7-56); Albumin 3.8 g/dL (3.9-5); BUN/Creatinine Ratio 15; Blood Urea Nitrogen 17 mg/dL (7-17); Calcium 9.5 mg/dL (8.4-10.2); Hemolysis Index 2
[2020-05-01 18:17] LABS: Bilirubin,Urine NEG (Negative); Blood,Urine NEG (Negative); Color,Urine Yellow (Yellow); Mucus,Urine FEW /HPF; Protein,Urine <15 mg/dL mg/dL (Negative); Urobilinogen,Urine < 2.0 mg/dL (<2.0)
[2020-05-01] MEDS ORDERED: INSULIN REGULAR, HUMAN 100 UNIT/ML 3ML VIAL ONE (19:24)
== END 2020-05-01 20:41 | disposition home or self-care (01) ==
LOC: ED 14:47
DX: E11.65 Type 2 diabetes mellitus with hyperglycemia (principal); I10 Essential (primary) hypertension; Z79.82 Long term (current) use of aspirin; Z79.4 Long term (current) use of insulin; Z79.899 Other long term (current) drug therapy; Z88.0 Allergy status to penicillin; Z91.013 Allergy to seafood
CPT/HCPCS: 36415; 71045; 80053; 81001; 82962; 85025; 96361; 96372; 96374; 99284; J2270; J2405; J7030; J1815

== ENCOUNTER 2020-11-05 12:24 | Emergency (ER) | payer SELFPAY ==
[2020-11-05] MEDS ORDERED: SODIUM CHLORIDE 0.9% 1000 ML 1,000 ML IV ONE ×2 (13:06→15:07)
--- NOTE | 2020-11-05 13:09 | Event Note ---
ED Screening Note Date of service: 11/05/20 Time: 13:08 ED Screening Note: 35-year-old female patient with history of DKA presents to the emergency department with complaints of dizziness, lightheadedness, fatigue, polydipsia, and polyuria for the last few days. No recent changes in medication regimen. 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 FSBS at home = 531 FSBS in triage > 400. General: Awake, appropriately interactive, no acute distress. Neck: Supple. Full range of motion intact. Cardiovascular: Normal peripheral perfusion. Pulmonary: No respiratory distress. Patient is speaking normally without use of accessory muscles. Skin: No apparent rashes or lesions. Neurological: No facial asymmetry. Speech is clear. Follows commands. Patient is alert and oriented. Musculoskeletal: Moves all four extremities spontaneously with normal range of motion. Psych: Cooperative. Appropriate mood and affect. I have greeted and performed a focused rapid initial assessment of this patient. A comprehensive ED assessment and evaluation of the patient, analysis of all test results, and completion of the medical decision-making process will be conducted by additional ED providers. This initial assessment/diagnostic orders/clinical plan/treatment(s) is/are subject to change based on patients health status, clinical progression and re-assessment. Further treatment and workup at subsequent clinical provider's discretion. Patient/guardian urged not to elope from the ED as their condition may be serious if not clinically assessed and managed.
[2020-11-05 14:20] LABS: Basophils # (Auto) 0.1 K/mm3 (0.0-0.1); Basophils % (Auto) 0.8 % (0.0-1.8); Eosinophils # (Auto) 0.1 K/mm3 (0.0-0.4); Eosinophils % (Auto) 0.4 % (0.0-4.3); Hematocrit 38.7 % (30.3-42.9); Hemoglobin 12.3 gm/dl (10.1-14.3); Lymphocytes # (Auto) 3.6 K/mm3 (1.2-5.4); Lymphocytes % (Auto) 23.4 % (13.4-35.0); Mean Corpuscular HGB Conc 32 % (30-34); Mean Corpuscular Volume 78 fl (79-97); Monocytes # (Auto) 0.8 K/mm3 (0.0-0.8); Monocytes % (Auto) 5.2 % (0.0-7.3); Platelet Count 414 K/mm3 (140-440); Red Blood Count 4.94 M/mm3 (3.65-5.03)
[2020-11-05 14:24] LABS: Red Cell Distribution Width 20.3 % (13.2-15.2)
[2020-11-05 14:32] LABS: Alanine Aminotransferase 12 units/L (7-56); Albumin 3.8 g/dL (3.9-5); BUN/Creatinine Ratio 16; Blood Urea Nitrogen 14 mg/dL (7-17); Calcium 9.2 mg/dL (8.4-10.2); Hemolysis Index 2
[2020-11-05] MEDS ORDERED: INSULIN REGULAR, HUMAN 100 UNITS/1 ML IV ONE (15:07)
[2020-11-05] MEDS ORDERED: KETOROLAC 30 MG/1 ML INJ IV ONE (15:07)
--- NOTE | 2020-11-05 15:37 | Cat Scan Report ---
CT head/brain wo con INDICATION: chavarria, blurred vision, hyperglyemia. TECHNIQUE: Routine CT head. All CT scans at this location are performed using CT dose reduction for A STAR by means of automated exposure control. COMPARISON: None. FINDINGS: Intracranial: Winn-white matter differentiation is maintained. No intracranial hemorrhage. No extra a xial collection. No hydrocephalus. No herniation. Sinuses: Paranasal sinuses and mastoid air cells are essentially clear. Orbits: Globes are intact. Calvarium: No acute fracture. IMPRESSION: 1. No acute intracranial abnormality. Signer Name: Zan Montenegro MD Signed: 11/05/2020 3:33 PM Workstation Name: [id number]
--- NOTE | 2020-11-05 16:22 | Emergency Department Report ---
ED General Adult HPI - General Chief complaint: Hyperglycemia Stated complaint: HIGH BLOOD SUGAR Time Seen by Provider: 11/05/20 15:01 Source: patient Mode of arrival: Ambulatory Limitations: No Limitations - History of Present Illness Initial comments: 35-year-old female with a past medical history of diabetes currently on insulin, diabetic neuropathy, and hypertension presents to the hospital complaining of hyperglycemia. For the last 2 weeks patient has been experiencing increased thirst and increased urination. Patient has been taking Lantus 15 units nightly x1 year and has been compliant. She does not consistently monitor her blood glucose levels throughout the day but has noticed her blood sugars have been persistently elevated with random blood glucose checks. Patient denies any dietary changes or increased carbohydrate intake. Since this morning she has had a global moderate headache without aggravating alleviating factors. She also reports worsening in intermittent blurry vision, generalized weakness, and worsening in her neuropathy pain this a.m. She denies nausea, vomiting, diarrhea, dumping, chest pain, shortness of breath, focal weakness, or focal numbness. patient denies infectious symptoms such as cough, fever, or dysuria. PMD: Dr. Gregorio Ma. Patient is an employee here with [employer] Severity scale (0 -10): 10 - Related Data Previous Rx's Medication Instructions Recorded Last Taken Type Blood-Glucose Meter [Blood Glucose 1 each QACHS #1 kit 04/24/18 07/14/18 Rx Monitoring] Aspirin EC [Halfprin EC] 81 mg PO QDAY #30 tablet 07/18/18 Unknown Rx AtorvaSTATin [Lipitor] 40 mg PO QHS #30 tablet 07/18/18 Unknown Rx Blood Sugar Diagnostic [Blood 1 each QACHS #120 strip 07/18/18 Unknown Rx Glucose Test Strip] Dicyclomine [Bentyl] 20 mg PO QID PRN #20 capsule 07/18/18 Unknown Rx Insulin Glargine [Lantus VIAL] 10 units SUB-Q QHS #1 vial 07/18/18 Unknown Rx Lancets 1 each QACHS #100 each 07/18/18 Unknown Rx Metoclopramide [Reglan TAB] 10 mg PO QID PRN #20 tab 07/18/18 Unknown Rx Syringe and Needle,Insulin,1Ml 1 each QHS #100 disp.syrin 07/18/18 Unknown Rx [Advocate Syringes] amLODIPine 10 mg PO QDAY #30 tablet 07/18/18 Unknown Rx lisinopriL [Lisinopril] 20 mg PO DAILY 30 Days #30 tablet 07/18/18 Unknown Rx metFORMIN [Glucophage] 1,000 mg PO BID #120 tablet 07/18/18 Unknown Rx Insulin Glargine [Lantus VIAL] 10 unit SUB-Q QHS #1 vial 09/22/18 Unknown Rx Metoclopramide [Reglan] 10 mg PO QID PRN #20 tab 09/22/18 Unknown Rx Lansoprazole [Prevacid] 15 mg PO BID #30 cap 09/28/18 Unknown Rx Ondansetron [Zofran Odt] 4 mg PO Q8HR #14 tab.rapdis 09/28/18 Unknown Rx Tramadol HCl [Ultram] 50 mg PO Q6HR PRN #14 tablet 09/28/18 Unknown Rx traMADoL [Ultram] 50 mg PO Q6HR PRN #24 tablet 05/01/20 Unknown Rx Butalb/Acetaminophen/Caffeine 1 cap PO Q8HR PRN #15 cap 11/05/20 Unknown Rx [Fioricet 50-300-40 mg CAP] Insulin Glargine [Lantus VIAL] 25 unit SUB-Q QHS #1 vial 11/05/20 Unknown Rx Insulin Regular, Human [HumuLIN R] See Protocol SQ TIDAC #1 vial 11/05/20 Unknown Rx Nitrofurantoin [place]/M-Cryst 100 mg PO Q12HR #10 capsule 11/05/20 Unknown Rx [Macrobid CAP] Allergies Allergy/AdvReac Type Severity Reaction Status Date / Time Penicillins Allergy Rash Verified 07/16/18 14:47 shellfish derived Allergy Rash Verified 07/16/18 14:47 ED Review of Systems ROS: Stated complaint: HIGH BLOOD SUGAR Other details as noted in HPI Comment: All other systems reviewed and negative ED Past Medical Hx - Past Medical History Hx Hypertension: Yes Hx Congestive Heart Failure: No Hx Diabetes: Yes Hx Asthma: No Hx COPD: No Hx HIV: No - Surgical History Past Surgical History?: No - Social History Smoking Status: Never Smoker Substance Use Type: None - Medications Home Medications: Home Medications Medication Instructions Recorded Confirmed Last Taken Type Blood-Glucose Meter [Blood Glucose 1 each QACHS #1 kit 04/24/18 07/15/18 07/14/18 Rx Monitoring] Aspirin EC [Halfprin EC] 81 mg PO QDAY #30 tablet 07/18/18 Unknown Rx AtorvaSTATin [Lipitor] 40 mg PO QHS #30 tablet 07/18/18 Unknown Rx Blood Sugar Diagnostic [Blood 1 each QACHS #120 strip 07/18/18 Unknown Rx Glucose Test Strip] Dicyclomine [Bentyl] 20 mg PO QID PRN #20 capsule 07/18/18 Unknown Rx Insulin Glargine [Lantus VIAL] 10 units SUB-Q QHS #1 vial 07/18/18 Unknown Rx Lancets 1 each QACHS #100 each 07/18/18 Unknown Rx Metoclopramide [Reglan TAB] 10 mg PO QID PRN #20 tab 07/18/18 Unknown Rx Syringe and Needle,Insulin,1Ml 1 each QHS #100 disp.syrin 07/18/18 Unknown Rx [Advocate Syringes] amLODIPine 10 mg PO QDAY #30 tablet 07/18/18 Unknown Rx lisinopriL [Lisinopril] 20 mg PO DAILY 30 Days #30 tablet 07/18/18 Unknown Rx metFORMIN [Glucophage] 1,000 mg PO BID #120 tablet 07/18/18 Unknown Rx Insulin Glargine [Lantus VIAL] 10 unit SUB-Q QHS #1 vial 09/22/18 Unknown Rx Metoclopramide [Reglan] 10 mg PO QID PRN #20 tab 09/22/18 Unknown Rx Lansoprazole [Prevacid] 15 mg PO BID #30 cap 09/28/18 Unknown Rx Ondansetron [Zofran Odt] 4 mg PO Q8HR #14 tab.rapdis 09/28/18 Unknown Rx Tramadol HCl [Ultram] 50 mg PO Q6HR PRN #14 tablet 09/28/18 Unknown Rx traMADoL [Ultram] 50 mg PO Q6HR PRN #24 tablet 05/01/20 Unknown Rx Butalb/Acetaminophen/Caffeine 1 cap PO Q8HR PRN #15 cap 11/05/20 Unknown Rx [Fioricet 50-300-40 mg CAP] Insulin Glargine [Lantus VIAL] 25 unit SUB-Q QHS #1 vial 11/05/20 Unknown Rx Insulin Regular, Human [HumuLIN R] See Protocol SQ TIDAC #1 vial 11/05/20 Unknown Rx Nitrofurantoin [place]/M-Cryst 100 mg PO Q12HR #10 capsule 11/05/20 Unknown Rx [Macrobid CAP] ED Physical Exam - General Limitations: No Limitations - Other Other exam information: General: No acute distress Head: Atraumatic Eyes: normal appearance ENT: Moist mucous membranes Neck: Normal appearance, no midline tenderness Chest: Clear to auscultation bilaterally CV: Regular rate and rhythm Abdomen: Soft, normal bowel sounds, nontender, nondistended, no rebound or guarding Back: Normal inspection Extremity: Normal inspection, full range of motion Neuro: Alert O x 3, no facial asymmetry, speech clear, no gross motor sensory deficit Psych: Appropriate behavior Skin: No rash ED Course Vital Signs 11/05/20 11/05/20 11/05/20 12:57 15:35 15:42 Temperature 98.2 F Pulse Rate 92 H Respiratory 18 18 Rate Blood Pressure 145/90 Blood Pressure [Right] O2 Sat by Pulse 99 100 Oximetry 11/05/20 11/05/20 11/05/20 15:45 16:00 16:05 Temperature Pulse Rate 80 82 Respiratory 16 14 18 Rate Blood Pressure 147/97 Blood Pressure [Right] O2 Sat by Pulse 100 100 Oximetry 11/05/20 11/05/20 11/05/20 16:11 16:16 16:30 Temperature Pulse Rate 82 78 Respiratory 18 20 16 Rate Blood Pressure 162/102 142/97 Blood Pressure [Right] O2 Sat by Pulse 98 100 100 Oximetry 11/05/20 11/05/20 11/05/20 16:46 17:00 17:16 Temperature Pulse Rate Respiratory 15 16 10 L Rate Blood Pressure 142/97 142/97 133/83 Blood Pressure [Right] O2 Sat by Pulse 100 99 100 Oximetry 11/05/20 11/05/20 11/05/20 17:30 17:38 17:46 Temperature Pulse Rate 80 Respiratory 16 20 18 Rate Blood Pressure 158/87 Blood Pressure 138/78 [Right] O2 Sat by Pulse 99 100 Oximetry 11/05/20 11/05/20 11/05/20 18:00 18:16 19:00 Temperature Pulse Rate Respiratory 13 18 Rate Blood Pressure 158/87 135/73 Blood Pressure [Right] O2 Sat by Pulse 98 98 Oximetry - Consultations Consultation #1: 11/05/20 17:42 Case discussed with patient's primary care doctor Dr. Ma. He recommends increase Lantus to 25 units nightly and add regular insulin sliding scale throughout the day 3 times daily. Follow-up in office recommended ED Medical Decision Making - Lab Data Result diagrams: 11/05/20 13:41 11/05/20 13:41 Lab Results 11/05/20 11/05/20 11/05/20 Range/Units 13:00 13:41 13:41 WBC 15.5 H (4.5-11.0) K/mm3 RBC 4.94 (3.65-5.03) M/mm3 Hgb 12.3 (10.1-14.3) gm/dl Hct 38.7 (30.3-42.9) % MCV 78 L (79-97) fl MCH 25 L (28-32) pg MCHC 32 (30-34) % RDW 20.3 H (13.2-15.2) % Plt Count 414 (140-440) K/mm3 Lymph % (Auto) 23.4 (13.4-35.0) % [place] % (Auto) 5.2 (0.0-7.3) % Eos % (Auto) 0.4 (0.0-4.3) % Baso % (Auto) 0.8 (0.0-1.8) % Lymph # (Auto) 3.6 (1.2-5.4) K/mm3 [place] # (Auto) 0.8 (0.0-0.8) K/mm3 Eos # (Auto) 0.1 (0.0-0.4) K/mm3 Baso # (Auto) 0.1 (0.0-0.1) K/mm3 Seg Neutrophils % 70.2 H (40.0-70.0) % Seg Neutrophils # 10.9 H (1.8-7.7) K/mm3 VBG pH (7.320-7.420) Sodium 127 L (137-145) mmol/L Potassium 4.2 (3.6-5.0) mmol/L Chloride 93.3 L (98-107) mmol/L Carbon Dioxide 26 (22-30) mmol/L Anion Gap 12 mmol/L BUN 14 (7-17) mg/dL Creatinine 0.9 (0.6-1.2) mg/dL Estimated GFR > 60 ml/min BUN/Creatinine Ratio 16 % Glucose 425 H (65-100) mg/dL POC Glucose 448 H (70-105) mg/dL Calcium 9.2 (8.4-10.2) mg/dL Magnesium 1.80 (1.7-2.3) mg/dL Total Bilirubin 0.20 (0.1-1.2) mg/dL AST 11 (5-40) units/L ALT 12 (7-56) units/L Alkaline Phosphatase 90 (35-129) units/L Total Protein 7.3 (6.3-8.2) g/dL Albumin 3.8 L (3.9-5) g/dL Albumin/Globulin Ratio 1.1 % HCG, Quant (0-4) mIU/mL Urine Color (Yellow) Urine Turbidity (Clear) Urine pH (5.0-7.0) Ur Specific [place] (1.003-1.030) Urine Protein (Negative) mg/dL Urine Glucose (UA) (Negative) mg/dL Urine Ketones (Negative) mg/dL Urine Blood (Negative) Urine Nitrite (Negative) Urine Bilirubin (Negative) Urine Urobilinogen (<2.0) mg/dL Ur Leukocyte Esterase (Negative) Urine WBC (Auto) (0.0-6.0) /HPF Urine RBC (Auto) (0.0-6.0) /HPF U Epithel Cells (Auto) (0-13.0) /HPF Urine Bacteria (Auto) (Negative) /HPF 11/05/20 11/05/20 11/05/20 Range/Units 14:37 14:37 16:19 WBC (4.5-11.0) K/mm3 RBC (3.65-5.03) M/mm3 Hgb (10.1-14.3) gm/dl Hct (30.3-42.9) % MCV (79-97) fl MCH (28-32) pg MCHC (30-34) % RDW (13.2-15.2) % Plt Count (140-440) K/mm3 Lymph % (Auto) (13.4-35.0) % [place] % (Auto) (0.0-7.3) % Eos % (Auto) (0.0-4.3) % Baso % (Auto) (0.0-1.8) % Lymph # (Auto) (1.2-5.4) K/mm3 [place] # (Auto) (0.0-0.8) K/mm3 Eos # (Auto) (0.0-0.4) K/mm3 Baso # (Auto) (0.0-0.1) K/mm3 Seg Neutrophils % (40.0-70.0) % Seg Neutrophils # (1.8-7.7) K/mm3 VBG pH 7.321 (7.320-7.420) Sodium (137-145) mmol/L Potassium (3.6-5.0) mmol/L Chloride (98-107) mmol/L Carbon Dioxide (22-30) mmol/L Anion Gap mmol/L BUN (7-17) mg/dL Creatinine (0.6-1.2) mg/dL Estimated GFR ml/min BUN/Creatinine Ratio % Glucose (65-100) mg/dL POC Glucose (70-105) mg/dL Calcium (8.4-10.2) mg/dL Magnesium (1.7-2.3) mg/dL Total Bilirubin (0.1-1.2) mg/dL AST (5-40) units/L ALT (7-56) units/L Alkaline Phosphatase (35-129) units/L Total Protein (6.3-8.2) g/dL Albumin (3.9-5) g/dL Albumin/Globulin Ratio % HCG, Quant < 2 (0-4) mIU/mL Urine Color Yellow (Yellow) Urine Turbidity Cloudy (Clear) Urine pH 6.0 (5.0-7.0) Ur Specific [place] 1.031 H (1.003-1.030) Urine Protein 30 mg/dl (Negative) mg/dL Urine Glucose (UA) >=500 (Negative) mg/dL Urine Ketones Neg (Negative) mg/dL Urine Blood Neg (Negative) Urine Nitrite Neg (Negative) Urine Bilirubin Neg (Negative) Urine Urobilinogen < 2.0 (<2.0) mg/dL Ur Leukocyte Esterase Lg (Negative) Urine WBC (Auto) 53.0 H (0.0-6.0) /HPF Urine RBC (Auto) 59.0 (0.0-6.0) /HPF U Epithel Cells (Auto) 29.0 H (0-13.0) /HPF Urine Bacteria (Auto) 1+ (Negative) /HPF 11/05/20 Range/Units 17:14 WBC (4.5-11.0) K/mm3 RBC (3.65-5.03) M/mm3 Hgb (10.1-14.3) gm/dl Hct (30.3-42.9) % MCV (79-97) fl MCH (28-32) pg MCHC (30-34) % RDW (13.2-15.2) % Plt Count (140-440) K/mm3 Lymph % (Auto) (13.4-35.0) % [place] % (Auto) (0.0-7.3) % Eos % (Auto) (0.0-4.3) % Baso % (Auto) (0.0-1.8) % Lymph # (Auto) (1.2-5.4) K/mm3 [place] # (Auto) (0.0-0.8) K/mm3 Eos # (Auto) (0.0-0.4) K/mm3 Baso # (Auto) (0.0-0.1) K/mm3 Seg Neutrophils % (40.0-70.0) % Seg Neutrophils # (1.8-7.7) K/mm3 VBG pH (7.320-7.420) Sodium (137-145) mmol/L Potassium (3.6-5.0) mmol/L Chloride (98-107) mmol/L Carbon Dioxide (22-30) mmol/L Anion Gap mmol/L BUN (7-17) mg/dL Creatinine (0.6-1.2) mg/dL Estimated GFR ml/min BUN/Creatinine Ratio % Glucose (65-100) mg/dL POC Glucose 99 (70-105) mg/dL Calcium (8.4-10.2) mg/dL Magnesium (1.7-2.3) mg/dL Total Bilirubin (0.1-1.2) mg/dL AST (5-40) units/L ALT (7-56) units/L Alkaline Phosphatase (35-129) units/L Total Protein (6.3-8.2) g/dL Albumin (3.9-5) g/dL Albumin/Globulin Ratio % HCG, Quant (0-4) mIU/mL Urine Color (Yellow) Urine Turbidity (Clear) Urine pH (5.0-7.0) Ur Specific [place] (1.003-1.030) Urine Protein (Negative) mg/dL Urine Glucose (UA) (Negative) mg/dL Urine Ketones (Negative) mg/dL Urine Blood (Negative) Urine Nitrite (Negative) Urine Bilirubin (Negative) Urine Urobilinogen (<2.0) mg/dL Ur Leukocyte Esterase (Negative) Urine WBC (Auto) (0.0-6.0) /HPF Urine RBC (Auto) (0.0-6.0) /HPF U Epithel Cells (Auto) (0-13.0) /HPF Urine Bacteria (Auto) (Negative) /HPF - Radiology Data Radiology results: report reviewed CT head/brain wo con INDICATION: chavarria, blurred vision, hyperglyemia. TECHNIQUE: Routine CT head. All CT scans at this location are performed using CT dose reduction for ALARA by means of automated exposure control. COMPARISON: None. FINDINGS: Intracranial: Winn-white matter differentiation is maintained. No intracranial hemorrhage. No extra axial collection. No hydrocephalus. No herniation. Sinuses: Paranasal sinuses and mastoid air cells are essentially clear. Orbits: Globes are intact. Calvarium: No acute fracture. IMPRESSION: 1. No acute intracranial abnormality. - Medical Decision Making Patient has hyperglycemia without DKA. Treated with IV fluids, Toradol, and insulin. She will plan a persistent headache and received morphine 4 mg with Zofran. At time of disposition symptoms have resolved and she is feeling much better. Case was discussed with her PMD Dr. Gregorio Ma who provided recommendations regarding her insulin therapy. Patient encouraged to track/monitor her glucose levels and insulin dosages and follow-up with Dr. Ma for further medication adjustments. Critical Care Time: No Critical care attestation.: If time is entered above; I have spent that time in minutes in the direct care of this critically ill patient, excluding procedure time. ED Disposition Clinical Impression: Hyperglycemia due to diabetes mellitus, Dehydration, UTI (urinary tract infection), Headache Disposition: DC- TO HOME OR SELFCARE Is pt being admited?: No Does the pt Need Aspirin: No Condition: Stable Instructions: Insulin Treatment for Diabetes Mellitus, General Headache Without Cause, Urinary Tract Infection, Adult, [id number], Type 2 Diabetes Mellitus, Self Care, Adult, Dehydration, Adult, Diabetes Mellitus Type 2 in Adults (ED) Additional Instructions: Take the medication as prescribed. Follow-up with your doctor. Return if symptoms worsen as indicated by your discharge instructions. Prescriptions: Butalb/Acetaminophen/Caffeine [Fioricet 50-300-40 mg CAP] 1 cap PO Q8HR PRN #15 cap PRN Reason: Headache Insulin Regular, Human [HumuLIN R] See Protocol SQ TIDAC #1 vial Insulin Glargine [Lantus VIAL] 25 unit SUB-Q QHS #1 vial Nitrofurantoin [place]/M-Cryst [Macrobid CAP] 100 mg PO Q12HR #10 capsule Referrals: PRIMARY CAREMD [Primary Care Provider] - 3-5 Days GREGORIO MA MD [Staff Physician] - 3-5 Days Forms: Work/School Release Form(ED) Time of Disposition: 18:37
[2020-11-05 16:50] LABS: Bacteria,Urine 1+ /HPF (Negative); Bilirubin,Urine NEG (Negative); Blood,Urine NEG (Negative); Color,Urine Yellow (Yellow); Urobilinogen,Urine < 2.0 mg/dL (<2.0)
[2020-11-05] MEDS ORDERED: ONDANSETRON 4 MG/2 ML INJ IV ONE (17:14)
[2020-11-05] MEDS ORDERED: MORPHINE 4 MG/1 ML INJ IV ONE (17:14)
[2020-11-05] MEDS ORDERED: NITROFURANTOIN MONOHYD/M-CRYST 100 MG CAP PO ONE (17:23)
[2020-11-05 19:06] VITALS: BP 135/73
== END 2020-11-05 19:14 | disposition home or self-care (01) ==
LOC: ED 12:24
DX: E11.65 Type 2 diabetes mellitus with hyperglycemia (principal); E86.0 Dehydration; N39.0 Urinary tract infection, site not specified; R51.9 Headache, unspecified; Z79.899 Other long term (current) drug therapy; Z88.0 Allergy status to penicillin; Z91.013 Allergy to seafood
CPT/HCPCS: 36415; 70450; 80053; 81001; 82805; 82962; 83735; 84702; 85025; 87086; 96361; 96374; 96375; 99284; J1885; J2270; J2405; J7030; J1815

== ENCOUNTER 2021-10-26 13:23 | Emergency (ER) | payer SELFPAY ==
[2021-10-26 14:38] VITALS: BP 146/91
[2021-10-26] MEDS: SODIUM CHLORIDE 0.9% 1000 ML 1,000 ML IV ONE (18:19)
[2021-10-26] MEDS: ONDANSETRON 4 MG/2 ML INJ IV ONE (18:20)
[2021-10-26] MEDS: KETOROLAC 30 MG/1 ML INJ IV ONE (18:35)
[2021-10-26 18:38] LABS: Basophils # (Auto) 0.1 K/mm3 (0.0-0.1); Basophils % (Auto) 0.7 % (0.0-1.8); Hematocrit 39.8 % (30.3-42.9); Hemoglobin 12.8 gm/dl (10.1-14.3); Lymphocytes # (Auto) 1.8 K/mm3 (1.2-5.4); Lymphocytes % (Auto) 15.8 % (13.4-35.0); Mean Corpuscular HGB Conc 32 % (30-34); Mean Corpuscular Volume 76 fl (79-97); Monocytes # (Auto) 0.6 K/mm3 (0.0-0.8); Monocytes % (Auto) 5.2 % (0.0-7.3); Platelet Count 573 K/mm3 (140-440); Red Blood Count 5.25 M/mm3 (3.65-5.03); Red Cell Distribution Width 17.2 % (13.2-15.2)
[2021-10-26 18:56] LABS: Alanine Aminotransferase 9 units/L (7-56); Albumin 4.4 g/dL (3.9-5); BUN/Creatinine Ratio 19; Blood Urea Nitrogen 21 mg/dL (7-17); Calcium 10.5 mg/dL (8.4-10.2); Hemolysis Index 1
[2021-10-26 19:55] LABS: Bilirubin,Urine NEG (Negative); Blood,Urine NEG (Negative); Color,Urine Yellow (Yellow); Mucus,Urine 1+ /HPF; Urobilinogen,Urine < 2.0 mg/dL (<2.0)
[2021-10-26 19:58] LABS: HCG Qualitative,Urine Negative (Negative)
--- NOTE | 2021-10-26 20:17 | Emergency Department Report ---
ED N/V/D HPI - General Chief complaint: Nausea/Vomiting/Diarrhea Stated complaint: DIABETES Time Seen by Provider: 10/26/21 17:25 Source: patient Mode of arrival: Ambulatory Limitations: No Limitations - History of Present Illness Initial comments: 36-year-old black female with a past medical history of diabetes and hypertension presents to the emergency department for evaluation of 1 week history of nausea vomiting and body aches. She states that she felt like her heart was racing earlier today. She denies chest pain and shortness of breath. She states that she was seen by her PCP today and found to have a hemoglobin A1c of 13. She states that she has been taking her diabetes medicine. She denies fever, abdominal pain, diarrhea, dysuria, and vaginal discharge. MD complaint: nausea, vomiting -: Gradual, week(s) (1) Associated Abdominal Pain: No (But does complain of generalized body aches) Pain Scale: 10 Quality: aching Consistency: constant Associated Symptoms: myalgias, malaise, nausea/vomiting. denies: chest pain, cough, diaphoresis, fever/chills, headaches, loss of appetite, rash, dysuria, shortness of breath, syncope, weakness - Related Data Previous Rx's Medication Instructions Recorded Last Taken Type Blood-Glucose Meter [Blood Glucose 1 each QACHS #1 kit 04/24/18 07/14/18 Rx Monitoring] Aspirin EC [Halfprin EC] 81 mg PO QDAY #30 tablet 07/18/18 Unknown Rx AtorvaSTATin [Lipitor] 40 mg PO QHS #30 tablet 07/18/18 Unknown Rx Blood Sugar Diagnostic [Blood 1 each QACHS #120 strip 07/18/18 Unknown Rx Glucose Test Strip] Dicyclomine [Bentyl] 20 mg PO QID PRN #20 capsule 07/18/18 Unknown Rx Insulin Glargine [Lantus VIAL] 10 units SUB-Q QHS #1 vial 07/18/18 Unknown Rx Lancets 1 each QACHS #100 each 07/18/18 Unknown Rx Metoclopramide [Reglan TAB] 10 mg PO QID PRN #20 tab 07/18/18 Unknown Rx Syringe and Needle,Insulin,1Ml 1 each QHS #100 disp.syrin 07/18/18 Unknown Rx [Advocate Syringes] amLODIPine 10 mg PO QDAY #30 tablet 07/18/18 Unknown Rx lisinopriL [Lisinopril] 20 mg PO DAILY 30 Days #30 tablet 07/18/18 Unknown Rx metFORMIN [Glucophage] 1,000 mg PO BID #120 tablet 07/18/18 Unknown Rx Insulin Glargine [Lantus VIAL] 10 unit SUB-Q QHS #1 vial 09/22/18 Unknown Rx Metoclopramide [Reglan] 10 mg PO QID PRN #20 tab 09/22/18 Unknown Rx Lansoprazole [Prevacid] 15 mg PO BID #30 cap 09/28/18 Unknown Rx Ondansetron [Zofran Odt] 4 mg PO Q8HR #14 tab.rapdis 09/28/18 Unknown Rx Tramadol HCl [Ultram] 50 mg PO Q6HR PRN #14 tablet 09/28/18 Unknown Rx traMADoL [Ultram] 50 mg PO Q6HR PRN #24 tablet 05/01/20 Unknown Rx Butalb/Acetaminophen/Caffeine 1 cap PO Q8HR PRN #15 cap 11/05/20 Unknown Rx [Fioricet 50-300-40 mg CAP] Insulin Glargine [Lantus VIAL] 25 unit SUB-Q QHS #1 vial 11/05/20 Unknown Rx Insulin Regular, Human [HumuLIN R] See Protocol SQ TIDAC #1 vial 11/05/20 Unknown Rx Nitrofurantoin [place]/M-Cryst 100 mg PO Q12HR #10 capsule 11/05/20 Unknown Rx [Macrobid CAP] Naproxen [Naprosyn] 500 mg PO BID #14 tab 10/26/21 Unknown Rx Ondansetron [Zofran Odt] 4 mg PO Q8HR PRN #12 tab.rapdis 10/26/21 Unknown Rx Allergies Allergy/AdvReac Type Severity Reaction Status Date / Time Penicillins Allergy Rash Verified 07/16/18 14:47 shellfish derived Allergy Rash Verified 07/16/18 14:47 ED Review of Systems ROS: Stated complaint: DIABETES Other details as noted in HPI Comment: All other systems reviewed and negative Constitutional: malaise. denies: chills, diaphoresis, fever, weakness Eyes: denies: vision change Respiratory: denies: cough, orthopnea, shortness of breath, SOB with exertion, SOB at rest, wheezing Cardiovascular: denies: chest pain, palpitations, dyspnea on exertion, orthopnea, edema, paroxysmal nocturnal dyspnea Gastrointestinal: nausea, vomiting. denies: abdominal pain, diarrhea, constipation, hematemesis, melena Genitourinary: denies: urgency, dysuria, frequency, hematuria, discharge, abnormal menses Skin: denies: rash, lesions, change in color, change in hair/nails Neurological: denies: headache, weakness, numbness, paresthesias, confusion, abnormal gait, vertigo ED Past Medical Hx - Past Medical History Hx Hypertension: Yes Hx Congestive Heart Failure: No Hx Diabetes: Yes Hx Asthma: No Hx COPD: No Hx HIV: No - Social History Smoking Status: Never Smoker Substance Use Type: None - Medications Home Medications: Home Medications Medication Instructions Recorded Confirmed Last Taken Type Blood-Glucose Meter [Blood Glucose 1 each QACHS #1 kit 04/24/18 07/15/18 07/14/18 Rx Monitoring] Aspirin EC [Halfprin EC] 81 mg PO QDAY #30 tablet 07/18/18 Unknown Rx AtorvaSTATin [Lipitor] 40 mg PO QHS #30 tablet 07/18/18 Unknown Rx Blood Sugar Diagnostic [Blood 1 each QACHS #120 strip 07/18/18 Unknown Rx Glucose Test Strip] Dicyclomine [Bentyl] 20 mg PO QID PRN #20 capsule 07/18/18 Unknown Rx Insulin Glargine [Lantus VIAL] 10 units SUB-Q QHS #1 vial 07/18/18 Unknown Rx Lancets 1 each QACHS #100 each 07/18/18 Unknown Rx Metoclopramide [Reglan TAB] 10 mg PO QID PRN #20 tab 07/18/18 Unknown Rx Syringe and Needle,Insulin,1Ml 1 each QHS #100 disp.syrin 07/18/18 Unknown Rx [Advocate Syringes] amLODIPine 10 mg PO QDAY #30 tablet 07/18/18 Unknown Rx lisinopriL [Lisinopril] 20 mg PO DAILY 30 Days #30 tablet 07/18/18 Unknown Rx metFORMIN [Glucophage] 1,000 mg PO BID #120 tablet 07/18/18 Unknown Rx Insulin Glargine [Lantus VIAL] 10 unit SUB-Q QHS #1 vial 09/22/18 Unknown Rx Metoclopramide [Reglan] 10 mg PO QID PRN #20 tab 09/22/18 Unknown Rx Lansoprazole [Prevacid] 15 mg PO BID #30 cap 09/28/18 Unknown Rx Ondansetron [Zofran Odt] 4 mg PO Q8HR #14 tab.rapdis 09/28/18 Unknown Rx Tramadol HCl [Ultram] 50 mg PO Q6HR PRN #14 tablet 09/28/18 Unknown Rx traMADoL [Ultram] 50 mg PO Q6HR PRN #24 tablet 05/01/20 Unknown Rx Butalb/Acetaminophen/Caffeine 1 cap PO Q8HR PRN #15 cap 11/05/20 Unknown Rx [Fioricet 50-300-40 mg CAP] Insulin Glargine [Lantus VIAL] 25 unit SUB-Q QHS #1 vial 11/05/20 Unknown Rx Insulin Regular, Human [HumuLIN R] See Protocol SQ TIDAC #1 vial 11/05/20 Unknown Rx Nitrofurantoin [place]/M-Cryst 100 mg PO Q12HR #10 capsule 11/05/20 Unknown Rx [Macrobid CAP] Naproxen [Naprosyn] 500 mg PO BID #14 tab 10/26/21 Unknown Rx Ondansetron [Zofran Odt] 4 mg PO Q8HR PRN #12 tab.rapdis 10/26/21 Unknown Rx ED Physical Exam - General Limitations: No Limitations General appearance: alert, in no apparent distress - Head Head exam: Present: atraumatic, normocephalic - Eye Eye exam: Present: normal appearance. Absent: conjunctival injection - Neck Neck exam: Present: normal inspection, full ROM. Absent: tenderness, lymphadenopathy - Respiratory Respiratory exam: Present: normal lung sounds bilaterally. Absent: respiratory distress, wheezes, rales, rhonchi, stridor, chest wall tenderness, accessory muscle use - Cardiovascular Cardiovascular Exam: Present: tachycardia, normal heart sounds - GI/Abdominal GI/Abdominal exam: Present: soft, normal bowel sounds. Absent: distended, tenderness, guarding, rebound, rigid - Extremities Exam Extremities exam: Present: normal inspection, normal capillary refill. Absent: pedal edema, joint swelling, calf tenderness - Back Exam Back exam: Present: normal inspection, full ROM. Absent: tenderness, CVA tenderness (R), CVA tenderness (L) - Neurological Exam Neurological exam: Present: alert, oriented X3, normal gait. Absent: motor sensory deficit - Psychiatric Psychiatric exam: Present: normal affect, normal mood - Skin Skin exam: Present: warm, dry, intact, normal color ED Course Vital Signs 10/26/21 14:36 Temperature 99.0 F Pulse Rate 114 H Respiratory 18 Rate Blood Pressure 146/91 [Right] O2 Sat by Pulse 98 Oximetry - Reevaluation(s) Reevaluation #1: 10/26/21 20:15 Nausea vomiting and body aches resolved. Patient states that she feels much better. She denies palpations, chest pain or shortness of breath at this time. ED Medical Decision Making - Lab Data Result diagrams: 10/26/21 17:46 10/26/21 17:46 - Medical Decision Making 36-year-old black female with a past medical history of diabetes and hypertension presents to the emergency department for evaluation of 1 week history of nausea vomiting and body aches. She states that she felt like her heart was racing earlier today. She denies chest pain and shortness of breath. She states that she was seen by her PCP today and found to have a hemoglobin A1c of 13. She states that she has been taking her diabetes medicine. She denies fever, abdominal pain, diarrhea, dysuria, and vaginal discharge. No gross abnormalities noted on labs. Patient denies abdominal pain. No tenderness to palpation on assessment. Symptoms resolved after medication. Patient will be treated for viral syndrome with Zofran and naproxen. She is advised to take medications as prescribed and follow-up with primary care provider if no improvement or worsening symptoms. Critical care attestation.: If time is entered above; I have spent that time in minutes in the direct care of this critically ill patient, excluding procedure time. ED Disposition Clinical Impression: Viral syndrome Disposition: HOME / SELF CARE / HOMELESS Is pt being admited?: No Does the pt Need Aspirin: No Condition: Stable Instructions: Viral Illness, Adult Additional Instructions: Take medications as prescribed. Drink plenty of noncaffeinated fluids. Follow- up with primary care provider if no improvement or worsening symptoms. Prescriptions: Naproxen [Naprosyn] 500 mg PO BID #14 tab Ondansetron [Zofran Odt] 4 mg PO Q8HR PRN #12 tab.rapdis PRN Reason: Nausea And Vomiting Referrals: PRIMARY CARE, [Primary Care Provider] - 3-5 Days Forms: Work/School Release Form(ED) Time of Disposition: 20:17
== END 2021-10-26 20:42 | disposition home or self-care (01) ==
LOC: ED 13:23
DX: B34.9 Viral infection, unspecified (principal); R11.2 Nausea with vomiting, unspecified; M79.18 Myalgia, other site; I10 Essential (primary) hypertension; E11.9 Type 2 diabetes mellitus without complications; Z88.0 Allergy status to penicillin; Z91.013 Allergy to seafood; Z79.4 Long term (current) use of insulin; Z79.899 Other long term (current) drug therapy; Z79.82 Long term (current) use of aspirin
CPT/HCPCS: 36415; 80053; 81001; 81025; 82962; 85025; 96361; 96374; 96375; 99283; J1885; J2405; J7030; Q0162